=== PATIENT | female | born 1995 | race Caucasian/White ===

== ENCOUNTER 2020-06-11 18:13 | Emergency (ER) | payer OTHER, SELFPAY ==
--- NOTE | ~2020-06-11 | XR_ITS ---
EXAMINATION: XR ankle LT min 3V EXAM DATE: 06/11/2020 18:34 INDICATION: rolled ankle, pain lateral left ankle, hx fx to lt ankle TECHNIQUE: Left ankle frontal, lateral and oblique projections obtained and reviewed. There is no pr ior study for comparison. FINDINGS: The left ankle mortise appears intact. There is acute closed posttraumatic fracture at t he dorsal aspect of the navicular bone identified best on the lateral projection. This finding has be en indicated, marked on the examination for review, clinical correlation. Swelling over the lateral m alleolus. No other acute findings. IMPRESSION: Acute left dorsal navicular nondisplaced avulsion fracture. Reviewed, dictated and finalized at location A.
[2020-06-11 18:21] VITALS: BP 136/76; PULSE 78; RESP 16; TEMP 37.1; O2SAT 100
--- NOTE | 2020-06-11 18:45 | ED.LOWEXIN ---
HPI - Extremity Injury (Lower) General Chief Complaint: Extremity Injury, Lower Stated Complaint: left ankle injury Time Seen by Provider: 06/11/20 18:21 Source: patient and RN notes reviewed Mode of arrival: ambulatory Limitations: no limitations History of Present Illness HPI Narrative: 25 year old female who presents to [facility] care with complaints of pain to the lateral area of her left ankle from injury at home this morning. Patient states that she got her foot caught in a landscape brick and inverted her foot causing injury. Patient has mild swelling to the lateral aspect of her left ankle and has small area of swelling noted to orsal foot near lateral ankle. Patient denies any tingling or numbness to her left foot, has pain with weight bearing and movement of her left ankle. Patient states previous fracture to her left ankle in 2017. MD complaint: foot injury and other Onset (ago): hour(s) (this morning) Injury: Left: ankle Type of Injury: inversion Place: home Severity: moderate Severity scale (1-10): 5 Relieving factors: NSAID and cold therapy Exacerbating factors: weight bearing and movement Context: fall Associated symptoms: swelling and able to partially bear weight Other symptoms: none Treatments prior to arrival: cold therapy and NSAIDS Related Data Home Medications Medication Instructions Recorded Confirmed etonogestrel-ethinyl estradiol 1 vag ring VAGINAL MONTHLY 06/11/20 06/11/20 [EluRyng] Allergies Allergy/AdvReac Type Severity Reaction Status Date / Time venom-honey bee Allergy Severe Anaphylactic Verified 06/11/20 18:25 Shock latex Allergy Mild RASH Verified 06/11/20 18:25 Wasp Allergy Severe Anaphylactic Uncoded 11/12/18 12:28 Shock Review of Systems Review of Systems: Narrative: CONSTITUTIONAL: Denies fever, chills, or sweats. EYES: Denies visual changes, redness, or discharge. ENT: Denies rhinorrhea, congestion, sore throat, or otalgia. CARDIOVASCULAR: Denies chest pain, palpitations, or edema. RESPIRATORY: Denies cough or dyspnea. GASTROINTESTINAL: Denies abdominal pain, nausea, vomiting, or diarrhea. GENITOURINARY: Denies dysuria or hematuria. SKIN: Denies rash or itching. MUSCULOSKELETAL: Denies back pain, positive for left ankle pain and swelling lateral aspect and dorsal left foot near ankle joint, or myalgia. NEUROLOGIC: Denies headache, numbness, or weakness. PSYCHIATRIC: Past history of post depression and history of anxiety. All systems reviewed & are unremarkable except as noted in HPI and below PMFSH Past Medical History Medical History (Updated 06/13/20 @ 20:11 by Malu Hager NP) Fracture of left ankle Post depression Surgical History Surgical History (Updated 06/13/20 @ 20:03 by Malu Hager NP) History of placement of ear tubes Family History Family History (Updated 06/13/20 @ 20:04 by Malu Hager NP) Father COPD (chronic obstructive pulmonary disease) Social History Social History (Updated 06/13/20 @ 20:05 by Malu Hager NP) Tobacco type: e-cigarettes/vaping Alcohol intake: current Substance use: never Living arrangements: with family Gender identity (if verbalized by the patient): Female Comments At time of signature, agree with nursing past medical, surgical, social and family history. There is no relevant family history pertinent to the presenting complaint Exam Narrative: Exam Narrative: GENERAL: Well-appearing, well-nourished, and in no acute distress. HEAD: Normocephalic, atraumatic. EYES: PERRLA and EOMI. ENT: Nares clear, no rhinorrhea or epistaxis. Mucous membranes moist. NECK: Supple.no lymphadenopathy CHEST: Clear to auscultation. No respiratory distress. HEART: Regular rate and rhythm. No murmur heard. Normal peripheral pulses. ABDOMEN: Soft, nontender, nondistended, normal active bowel sounds. EXTREMITIES: Normal range of motion. No edema.with exception to left lateral ankle and lef
== END 2020-06-11 19:22 | disposition home or self-care (01) ==
PROVIDERS: Emergency Provider Registered Nurse
DX: S92.255A Nondisplaced fracture of navicular [scaphoid] of left foot, initial encounter for closed fracture (principal); X50.9XXA Other and unspecified overexertion or strenuous movements or postures, initial encounter; F17.200 Nicotine dependence, unspecified, uncomplicated
CPT/HCPCS: 73610; 99214; G0463

== ENCOUNTER 2022-10-07 12:44 | Outpatient (CLI) | payer OTHER, SELFPAY ==
--- NOTE | ~2022-10-07 | MR_ITS ---
MRI of the left ankle Clinical history: Chronic instability Technique: Coronal proton-density and proton-density fat-sat images, axial proton-density and proton- density fat-sat images, and sagittal proton-density and proton-density fat-sat images were acquired. Findings: Distal syndesmotic ligaments are intact. Posterior talofibular and calcaneofibular ligament s are intact. Anterior talofibular ligament is not clearly visualized, probably chronically torn. Del toid ligament is intact. Medial flexor tendons, peroneal tendons, anterior extensor tendons, and Achilles tendon are intact. No osteochondral lesion of the talar dome. Visualized bone marrow signals are unremarkable. There is focal moderate degenerative change of the talonavicular articulation dorsally. Small subtalar joint e ffusion noted. Plantar fascia is intact. Normal signal preserved within the sinus Tarsi. No soft tissue mass evident . 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 Focal moderate degenerative change of the dorsal aspect of the talonavicular articulation. Reviewed, dictated and finalized at location . 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 Focal moderate degenerative change of the dorsal aspect of the talonavicular ar ticulation.
== END 2022-10-07 12:45 ==
LOC: GOSHIMG 12:48
PROVIDERS: PCP Hospitalist; Visit Provider Podiatrist Foot & Ankle Surgery
DX: M19.072 Primary osteoarthritis, left ankle and foot (principal); M24.475 Recurrent dislocation, left foot
CPT/HCPCS: 73721

== ENCOUNTER 2022-10-21 00:47 | Day surgery (SDC) | payer OTHER, SELFPAY ==
[2022-10-18 11:03] VITALS: BMI 24.3
--- NOTE | 2022-10-18 11:07 | PC.NURSE ---
Report to the Outpatient Waiting Room, entrance under the green pavilion located off [facility], at time 0900 on date 10/21/22. Planned Procedure Time: 1100. Time changes happen often and if your time is changed the preop area will call you the afternoon before. - You and your visitor will be asked to self-screen and do not enter if you have any COVID symptoms. - Only one visitor is requested with a max of two and NO children visitors are allowed at this time. - The patient visitor may be requested to leave or wait in car when not with patient due to distancing restrictions. - A mask is optional within the hospital at this time. Patients may have clear liquids (water, carbonated beverages, clear teas, apple juice) until 3 hours prior to surgery with a maximum of 20 ounces. - No food from midnight until time of surgery Take the following medications with a SIP of water the morning of surgery: SERTRALINE DO NOT STOP ANY OF YOUR OTHER PRESCRIPTION MEDICATIONS PRIOR TO SURGERY EXCEPT THE FOLLOWING Medications to discontinue per physician: N/A Date to take last dose: N/A Please no make-up, nail czech, hairspray, perfume, deodorant, or body powder the day of surgery. No jewelry (including any body piercings) or valuables the day of surgery, leave them at home. Please take a shower or bath the night before, or the morning of, surgery with an antibacterial soap. Wear comfortable, loose fitting clothing. - Jewelry must be removed prior to entering the operating room. Rings and piercings that are not removed may be cut off. - The hospital will not accept responsibility for valuables. - Please leave all valuables, including medications, at home the day of surgery. If you are going home after surgery, a licensed tower truck driver must drive you home. - NO public transportation without another adult if you receive anesthesia. - We recommend that an adult stay with you for 24 hours following discharge. - We also recommend that you do not drive, make important decision, drink alcoholic beverages, or take any drugs that were not prescribed by your health care provider for at least 24 hours after your discharge time. Follow any additional instructions given to you from your surgeon. If you or anyone in your household have experienced Covid symptoms in the past week, please notify your surgeon or the nurse liaison at the phone number below for possible testing. Telephone instructions given to PT - SHANNAN DOLL and asked if any additional questions and then verbalized understanding. Patient advised to call surgeon office or pre surgery nurse liaison [phone] if any additional questions.
[2022-10-21] VITALS (8 sets, daily range): BP systolic 108–119; BP diastolic 69–79; PULSE 75–100; RESP 12–20; TEMP 36.8–36.9; O2SAT 96–100
--- NOTE | ~2022-10-21 | XR_ITS ---
EXAMINATION: XR surgery orthopedic DATE: 10/21/2022 13:32 INDICATION: Left ankle instability. TECHNIQUE: A single intraoperative fluoroscopic view of left ankle was obtained. I was not present. F luoroscopy exposure time was 2 seconds. COMPARISON: Left ankle radiographs 06/11/2020 FINDINGS: A tissue parts chaser overlies the lateral ankle. A wire overlies the hindfoot. IMPRESSION: 1. Lateral left ankle surgery in progress. Reviewed, dictated and finalized at location A. ACLS
--- NOTE | 2022-10-21 07:24 | WPDHPUPDATE1 ---
History and Physical Update Update Date/Time: 10/21/22 07:24 History and Physical has been reviewed, including an updated exam of the patient. There are NO changes in the patient's condition. Risks, benefits, and alternatives have been discussed and questions answered. Patient agrees to proceed with procedure.
[2022-10-21] MEDS: LACTATED RINGERS 1,000 ML 30 ML IV CONT ×2 (09:20→13:39)
--- NOTE | 2022-10-21 10:30 | SUR.PREOP ---
Discussed delay with patient and her .
--- NOTE | 2022-10-21 11:32 | WPDANESEPPF ---
Anes - Initial Pre Proc Eval Procedure: Operation Date: 10/21/22 11:00 Proposed Procedures p Angelita Lateral Left Ankle Repair - Jw Pillai JR, MD Date/Time: 10/21/22 11:32 Surgeon: Jw Pillai JR, MD Pre Op Diagnosis: Lateral Left Ankle Instability Patient Data Age: 27 Gender: F Height: 1.7 m Weight: 71.2 kg Last Vital Signs Temp 36.9 C 10/21/22 09:05 Pulse 75 10/21/22 09:05 Resp 16 10/21/22 09:05 BP 114/74 10/21/22 09:05 Pulse Ox 100 10/21/22 09:05 O2 Del Method Room Air 10/21/22 09:05 Allergies Allergy/AdvReac Type Severity Reaction Status Date / Time venom-honey bee Allergy Severe Anaphylactic Verified 10/21/22 08:52 Shock latex Allergy Mild RASH Verified 10/21/22 08:52 Wasp Allergy Severe Anaphylactic Uncoded 10/21/22 08:52 Shock Home Medications Medication Instructions Recorded Confirmed Type etonogestrel 0.12 mg-ethinyl 1 vag ring vaginal MONTHLY 06/11/20 10/18/22 History estradiol 0.015 mg/24 hr vaginal ring ([facility]) sertraline 100 mg tablet 100 mg PO DAILY 10/18/22 10/18/22 History Patient hx anesthesia problems: none Family hx anesthesia problems: none Results Review: All pre-operative results and documents have been reviewed as part of the pre-operative evaluation. [facility] Past Medical History Medical History Fracture of left ankle Post depression Surgical History Surgical History History of placement of ear tubes Family History Family History Father COPD (chronic obstructive pulmonary disease) Social History Social History Smoking status: Former smoker Tobacco type: cigarettes Additional smoking assessment comments: FORMER SOCIAL SMOKER Alcohol intake: never Substance use: never Substance use type: does not use Living arrangements: with family Gender identity (if verbalized by the patient): Female Spiritual care concerns: No Anes - Eval Final PreProcedure Day of Procedure 10/21/22 11:32 Patient weight: normal Heart: regular rate and rhythm Lungs: clear to auscultation Airway: Mallampati scale class 1 Neurological: alert and oriented Last oral intake: >/= 8 hours ASA classification: II Emergent: no Anesthetic plan: proceed Anesthesia type and monitoring: general LMA and standard monitoring Results Review: All pre-operative results and documents have been reviewed as part of the pre-operative evaluation. Informed Consent: The patient's anesthetic plan and its attendant risks and benefits were discussed with the patient/family/POA. Questions were solicited and answers provided to the satisfaction of the patient/family/POA.
[2022-10-21] MEDS: SCOPOLAMINE 1.5 MG PATCH TRANSDERM (11:38)
[2022-10-21] MEDS: ceFAZolin 2 GM/D5W 50 ML 2 GM/50 ML BAG IVPB (12:06)
[2022-10-21] MEDS: LIDOCAINE HCL 2% LOCAL INJ 20 ML VIAL 10 ML INFILTRATE (12:48)
[2022-10-21] MEDS: BUPivacaine HCL 0.5% 10 ML AMP INFILTRATE (12:48)
[2022-10-21] MEDS: fentaNYL CITRATE INJ (*CRX) 100 MCG/2 ML VIAL 25 MCG IV PUSH ×4 (13:54→14:13)
--- NOTE | 2022-10-21 14:15 | W.PM.PROC2 ---
Procedure Note - Detailed Date of Procedure 10/21/22 Pre-op Diagnosis Lateral Left Ankle Instability Post-op Diagnosis Same Procedure Performed Brostrom lateral ankle ligament stabilization left Surgeon Jw Pillai JR, DPM Anesthesia General and Local Indications Chronic history of ankle sprains and instability Description of Procedure Under mild sedation, the patient was brought in to the operating room, placed on the operating table in the lateral decubitus position. A pneumatic thigh tourniquet was placed about the patient's left thigh. Following general anesthesia, local anesthesia was obtained about the proximal leg utilizing 20 mL of local anesthesia of a one to one mix of 0.5% Marcaine plain and 2% Lidocaine plain, administered just inferior and posterior to the neck of the fibula 10ccs and also 10cm superior to the lateral malleolus with an additional 10cc's. The foot and distal leg were then scrubbed, prepped, and draped in the usual aseptic manner. An Esmarch bandage was then used to exsanguinate the patient's foot and ankle and the pneumatic thigh tourniquet was then inflated. An incision was made starting 2cm proximal to the lateral malleolus extending four centimeters in an oblique fashion over the lateral aspect of neck of the talus. The incision was continued deep down through the subcutaneous tissues using sharp and blunt dissection. All bleeders were ligated and cauterized as necessary. Next I identified the anterior aspect of the lateral malleolus and cut the lateral anterior capsule and the elongated lateral ankle ligaments, I used a rongeur to expose cancellous bone in order to promote adhesion. Next, I utilized the Arthrex Drill guide to drive a guide wire for the Arthrex internal brace system into the lateral aspect of the talus. The guide was positioned within the sinus tarsi canal with the paddle at the seven thirty position in order to appropriately orient the distal arm of the internal brace anchor. I utilized fluoroscopy to make sure that the guide wire was adequately positioned. Moreover, I tapped and screwed in the distal anchor for the Internal Brace Implant. Next, I drilled two holes and tapped in the biocomposite Suture Blake anchors. In addition in between the Suture Blake drill holes I drilled a hole for the fibular component of the Internal Brace system. Next, with the foot everted and dorsiflexed I advanced the lateral ankle ligament and retinaculum to the fibula. Finally I properly tensioned the fibular component of the Arthrex Internal brace system and drove in the bone anchor following the standard technique guidelines. I utilized the remaining two suture and provided needles from the Suture Taks to reinforce the repair by incorporating the lateral ankle capsule and ligaments and secure to the periosteum overlying the distal fibula. Excellent improvement was noted as far as the clinical anterior drawer and talar tilt. Next the subcutaneous structures were reapproximated and coapted utilizing 4-0 Vicryl. Next, the skin was reapproximated and coapted utilizing 4-0 Monocryl in running subcuticular suture fashion technique. Upon completion of the procedure, the incisions were all dressed with 1/4 inch Steri Strips, Adaptic, 4x4s, Kerlix, and Coban. The pneumatic thigh tourniquet was then deflated and a prompt hyperemic response was noted to all digits of the affected foot. A posterior splint was then applied with the foot held 90 degrees to the leg and the foot everted. The patient did very well with the procedure and the anesthesia. The patient was transferred to the recovery room with vital signs stable and vascular status intact to all toes of the affected foot. Following a period of postoperative monitoring, the patient will be discharged home on the following written and oral postoperative instructions: 1. The patient should keep the dressing clean, dry, and intact. Use a cast protector bag with eli
[2022-10-21] MEDS: oxyCODONE HCL (*CRX) 5 MG TAB IR PO (14:26)
== END 2022-10-21 15:00 | disposition home or self-care (01) ==
PROVIDERS: PCP Hospitalist; Visit Provider Podiatrist Foot & Ankle Surgery
PROC: (CPT 27698; principal; 2022-10-21 11:00)
DX: M25.372 Other instability, left ankle (principal); Z87.891 Personal history of nicotine dependence
CPT/HCPCS: 27696; 99199; A9270; C1713; J0131; J0690; J1100; J1170; J2250; J2370; J2405; J2704; J3010; J7120

== ENCOUNTER 2024-01-29 09:51 | Outpatient (CLI) | payer OTHER, SELFPAY ==
--- NOTE | ~2024-01-29 | MR_ITS ---
MRI of the left ankle Clinical history: Peroneal tendinitis Technique: Coronal proton-density and proton-density fat-sat images, axial proton-density and proton- density fat-sat images, and sagittal proton-density and proton-density fat-sat images were acquired. Findings: Syndesmotic ligaments are intact. There is evidence of postoperative change about the later al malleolus/lateral ankle. Probably chronic tear or chronic posttraumatic change of the anterior homar ofibular ligament is poorly delineated, and possibly markedly thickened/hyperintense. Posterior talof ibular ligament and calcaneofibular ligament are intact. Deltoid ligament is intact. Medial patellar tendons, peroneal tendons, anterior extensor tendons, and Achilles tendon are intact. There is no osteochondral lesion of the talar dome. There is orthopedic susceptibility artifact at th e talus, requiring correlation with surgical history. No other bone marrow signal abnormality seen. T here is mild degenerative change of the talonavicular articulation. No significant joint effusion see n. Plantar fascia intact. No soft tissue mass or fluid collection seen otherwise. Impression: Probable postoperative changes at the lateral malleolus with probable chronic tear or other chronic p osttraumatic change of the anterior talofibular ligament, as above. Peroneal tendons are intact. Reviewed, dictated and finalized at location . Impression: Probable postoperative changes at the lateral malleolus with probable chronic t ear or other chronic posttraumatic change of the anterior talofibular ligament, as above. Peroneal tendons are intact.
== END 2024-01-29 09:52 ==
PROVIDERS: PCP Hospitalist; Visit Provider Podiatrist Foot & Ankle Surgery
DX: M76.72 Peroneal tendinitis, left leg (principal)
CPT/HCPCS: 73721

== ENCOUNTER 2024-09-05 18:49 | Observation (INO) | payer OTHER, SELFPAY ==
[2024-09-05] VITALS (7 sets, daily range): BP systolic 103–113; BP diastolic 55–66; PULSE 75–81
[2024-09-05 19:21] LABS: Add Urine Microscopic? YES; Appearance Urine Cloudy (Clear); Bacteria Urine 3+ /hpf; Bilirubin Urine Negative (Negative); Blood Urine Negative (Negative); Color Urine Yellow (Yellow); Glucose Urine UA Negative (Negative); Ketones Urine Trace mg/dL (Negative); Leukocyte Esterase Ur 2+ LEU/UL (Negative); Nitrate Urine Negative (Negative); Protein Urine Trace mg/dL (Negative); Specific Grav Ur 1.027 (1.001-1.035); Squamous Epithelial Cell Urine Many /hpf (Few); WBC Urine 21-50 /hpf (0-3)
--- NOTE | 2024-09-05 19:24 | OBADM ---
This patient, Ani Fernandez, admitted to the OB room OB Post 115 for observation. Patient/family oriented to hospital policies and general routines including ID bracelet, bed and alarms, visiting hours, pain management, procedures, bathroom and other care routines, personal items, smoking policy, room service/diet, and visiting hours. Patient/Family are encouraged to report perceived risks to care and to ask questions if they do not understand what they are told or what they should do.
--- NOTE | 2024-09-11 08:35 | P.PNOB_ITS ---
OB - Triage/Final Diagnosis Visit Information Comments/Additional reasons for admission: I have assessed the risk for this patient, Ani Fernandez, and determined that she would benefit from observation care. Evaluation Laboratory results: Laboratory Tests 09/05/24 19:12 Urine Color Yellow Urine Appearance Cloudy H Urine pH 6.0 Ur Specific [place] 1.027 Urine Protein Trace Urine Glucose (UA) Negative Urine Ketones Trace H Ur Blood (Man) Negative Urine Nitrate Negative Urine Bilirubin Negative Urine Urobilinogen 1.0 Leukocyte Esterase Rfl 2+ H Urine RBC 3-5 H Urine WBC 21-50 H Ur Squamous Epith Cells Many H Urine Bacteria 3+ H Urine Casts 3-5 Final Diagnosis (1) False labor: Code(s): O47.9 - False labor, unspecified Status: Acute
== END 2024-09-05 20:30 | disposition home or self-care (01) ==
PROVIDERS: Admitting Provider Obstetrics & Gynecology; PCP Hospitalist; Visit Provider Obstetrics & Gynecology
DX: O47.02 False labor before 37 completed weeks of gestation, second trimester (principal); Z3A.27 27 weeks gestation of pregnancy
CPT/HCPCS: 59025; 81001; 87086; G0378; G0379

== ENCOUNTER 2024-10-18 10:56 | Observation (INO) | payer OTHER, SELFPAY ==
[2024-10-18 11:30] VITALS: BMI 29.9
[2024-10-18 11:39] LABS: Add Urine Microscopic? YES; Appearance Urine Clear (Clear); Bacteria Urine None Seen /hpf; Bilirubin Urine Negative (Negative); Blood Urine 2+ (Negative); Color Urine Yellow (Yellow); Glucose Urine UA Negative (Negative); Ketones Urine Negative (Negative); Leukocyte Esterase Ur Negative LEU/UL (Negative); Need Manual Microscopic Reviewed; Nitrate Urine Negative (Negative); Non Pathogenic Casts 0-2; Protein Urine Negative (Negative); RBC Urine 0-2 /hpf (0-2); Specific Grav Ur 1.003 (1.001-1.035); Squamous Epithelial Cell Urine None Seen /hpf (Few); Urobilinogen Urine 0.2 mg/dL (<2.0); WBC Urine 0-5 /hpf (0-3); pH Urine 7.5 (5.0-9.0)
--- OUTSIDE RECORDS SUMMARY | 2024-10-18 12:05 | XMS_ITS | Clinical Summary ---
Author Organization [facility] [place] 163 [facility] lto Address [address] [place] [address] Care Team Providers Care Stock Controller Name Role Phone Christian Noland MD Primary Care Provider +1 [phone] Allergies Active Allergy Reactions Criticality Noted Date Comments Latex Rash Medium 01/07/2022 Medications NUVARING 0.12-0.015 mg/24 hr vaginal ring 03/14/2017 Active amitriptyline (ELAVIL) 10 mg tablet Take 1 tablet (10 mg total) by mouth nightly 30 tablet 1 01/07/2022 Active ALPRAZolam (XANAX) 0.5 mg tabletIndicatio ns:Generalized Anxiety Disorder,Panic Disorder Take 1 tablet (0.5 mg total) by mouth nightly as needed for anxiety 30 tablet 01/07/2022 Active sertraline (ZOLOFT) 100 mg tablet Take 1 tablet (100 mg total) by mouth daily 06/04/2023 Active azithromycin (ZITHROMAX) 250 mg tabletIndicatio ns:Bronchitis Take two tabs first day, then one tab daily x 4 days 6 tablet 11/07/2023 Active benzonatate (TESSALON) 200 mg capsuleIndicati ons:Bronchitis Take 1 capsule (200 mg total) by mouth 3 (three) times a day as needed for cough 40 capsule 11/07/2023 Active Active Problems Problem Noted Date Diagnosed Date Generalized anxiety disorder 01/07/2022 Assessment & Plan (01/07/2022 4:57 PM CDT): Patient reports elevated anxiety; has difficulty with focusing in grains was running with racing heart rates Patient reports recent divorce, with continued complications a divorce Patient has history of anxiety in the past, previously on Xanax and fluoxetine; discontinued during Today start sertraline 50 mg daily, amitriptyline 10 mg nightly for sleep; Xanax 0.5 mg p.r.n. for anxiety Current moderate episode of major depressive disorder without prior episode 01/07/2022 Assessment & Plan (01/07/2022 4:57 PM CDT): Not well controlled, patient continues to have anhedonia, poor sleep, poor appetite at times Will start sertraline 50 mg daily; follow-up in 4 weeks response to therapy, encouraged patient to engage with social work and counseling Immunizations Immunization Administration Dates Next Due Influenza, Quadrivalent, Spl it, Preservative Free, Intramuscular 08/30/2018 Influenza, Unspecified 01/07/2022(Deferr ed: Patient Refused),05/21/2021(Deferred: Patient Refused) Social Plus (J&J) SARS-CoV-2 Vaccination 07/28/2021 Surgical History Surgery Date Site/Laterality Comments NO PAST SURGERIES Medical History Medical History Date Comments No pertinent past medical history Anxiety Depression Family History Medical History Relation Name Comments COPD Father Thyroid disease Mother Cancer Other Relation Name Status Comments Father Mother Other Social History Tobacco Use Types Packs/Day Years Used Date Smoking Tobacco: Former Cigarettes 0 08/2012 - 07/2013 Smokeless Tobacco: Never Alcohol Use Standard Drinks/Week Comments Yes 0 (1 standard drink = 0.6 oz pur e alcohol) AUDIT-C Answer Date Recorded Q1: How often do you have a drink containing alcohol? Never 01/07/2022 Q2: How many drinks containi ng alcohol do you have on a typical day when you are drinking? Patient does not drink Q3: How often do you have si x or more drinks on one occasion? Never 01/07/2022 PHQ-2 Answer Date Recorded PHQ-2 Total Score 5 01/07/2022 Comments No Sex and Gender Information Value Date Recorded Sex Assigned at Not on file Legal Sex Female 9:34 PM CLERK GUIDE Gender Identity Not on file Sexual Orientation Not on file Obstetrics History Last Filed Vital Signs Vital Sign Reading Time Taken Comments Blood Pressure 120/80 11/07/2023 12:24 PM CDT Pulse 110 11/07/2023 12:24 PM CDT Temperature 36.8 C (98.2 F) 11/07/2023 12:24 PM CDT Respiratory Rate 18 07/25/2023 9:42 AM CLERK GUIDE Oxygen Saturation 98% 11/07/2023 12:24 PM CDT Inhaled Oxygen Concentration - - Weight 73 kg (161 lb) 11/07/2023 12:24 PM CDT Height 170.2 cm (5' 7 ) 11/07/2023 12:24 PM CDT Body Mass Index 25.22 11/07/2023 12:24 PM CDT Plan of Treatment Health Maintenance Due Date Last Done Comments Cervical Cancer Screening 1995 Hepatitis C Screening 1995 DTaP/Tdap/Td Vaccine (1 - Tdap) 2006 Varicella Vaccines (1 of 2 - 13+ 2-dose series) 2008 Hepatitis B Screening 2013 Regular Well Visit/Exam 18-64 2013 Depression Screening 01/07/2023 01/07/2022 Covid-19 Vaccine (2 - 2023-2 5 season) 2024 07/28/2021 Influenza Vaccine (#1) 2024 08/30/2018 HPV Vaccines Aged Out No longer eligi ble based on patient's age to complete this topic Pneumococcal vaccine <65 Aged Out No longer eligible based on patient's age to complete this topic Insurance CHOICE PLUS [facility] CHOICE PLUS [place] [id number] Care Teams Stock Controller Relationship Specialty Start Date End Date Christian Noland MD [address] [place] [address] PCP - General Family Medicine 01/07/22
--- OUTSIDE RECORDS SUMMARY | 2024-10-18 12:05 | XMS_ITS | Clinical Summary ---
Author Organization [facility] Address [address] [place] [phone] Phone Care Team Providers Care Dormitory Maid Name Role Phone Provider, None Primary Care Provider Unavailabl e Allergies No known active allergies Medications NuvaRing 0.12-0.015 MG/24HR RING 09/15/2020 Active Social History Tobacco Use Types Packs/Day Years Used Date Smoking Tobacco: Never Smokeless Tobacco: Never Comments No Sex and Gender Information Value Date Recorded Sex Assigned at Not on file Legal Sex Female 3:12 PM BLASTING CONTRACT MAN Gender Identity Not on file Sexual Orientation Not on file Last Filed Vital Signs Vital Sign Reading Time Taken Comments Blood Pressure 120/64 10/21/2020 3:19 PM BLASTING CONTRACT MAN Pulse 116 10/21/2020 3:19 PM BLASTING CONTRACT MAN Temperature 37.6 C (99.7 F) 10/21/2020 3:19 PM BLASTING CONTRACT MAN Respiratory Rate 18 10/21/2020 3:19 PM BLASTING CONTRACT MAN Oxygen Saturation 96% 10/21/2020 3:19 PM BLASTING CONTRACT MAN Inhaled Oxygen Concentration - - Weight - - Height - - Body Mass Index - - Plan of Treatment Health Maintenance Due Date Last Done Comments Hepatitis C Virus (HCV) Screening 1995 TdaP Immunization 1995 Hepatitis B Immunization (1 of 3 - 19+ 3-dose series) 2014 Pap Smear 2016 Influenza Immunization (#1) 2024 08/30/2018 SARS-COV-2 Immunization (2 - season) 2024 07/28/2021 Respiratory Syncytial Virus (RSV) Immunization (Adult) (1 - 1-dose 75+ series) 2070 Meningococcal Immunization (ACWY) Aged Out No longer eligible based on patient's age to complete this topic Pneumococcal Immunization Combined Aged Out No longer eligible based on patient's age to complete this topic Rotavirus Immunization Aged Out No lo nger eligible based on patient's age to complete this topic Insurance Care Teams Dormitory Maid Relationship Specialty Start Date End Date Provider, None [place] PCP - General 10/21/20
--- OUTSIDE RECORDS SUMMARY | 2024-10-18 12:05 | XMS_ITS | Referral Summary ---
Author Organization [facility] 163 [facility] lto Address [address] [place] [address] Care Team Providers Care Wedding Planner Name Role Phone Christian Noland MD Primary Care Provider [phone] [phone] Allergies Active Allergy Reactions Criticality Noted Date [...] Unspecified 01/07/2022(Deferr ed: Patient Refused),05/21/2021(Deferred: Patient Refused) Siriona (J&J) SARS-CoV-2 Vaccination 07/28/2021 Social History Tobacco Use Types Packs/Day Years [...] on file Legal Sex Female 9:34 PM EPIC RADIANT ANALYST Gender Identity Not on file Sexual Orientation Not on file Last Filed Vital Signs Vital Sign Reading Time Taken Comments Blood Pressure 120/80 11/07/2023 12:24 PM CDT Pulse 110 11/07/2023 12:24 PM CDT Temperature 36.8 C (98.2 F) 11/07/2023 12:24 PM CDT Respiratory Rate 18 07/25/2023 9:42 AM EPIC RADIANT ANALYST Oxygen Saturation 98% 11/07/2023 12:24 PM CDT Inhaled Oxygen Concentration - - Weight 73 kg (161 lb) 11/07/2023 12:24 PM CDT Height 170.2 cm (5' 7 ) 11/07/2023 12:24 PM CDT Body Mass Index 25.22 11/07/2023 12:24 PM CDT Plan of Treatment Not on file Insurance CHOICE PLUS [facility] HMO/PPO Address: [place] [id number] [facility] CHOICE PLUS [facility] HMO/PPO Address: [place] [id number] Care Teams Wedding Planner Relationship Specialty Start Date End Date Christian [place] [address] PCP - General Family Medicine 01/07/22
[2024-10-18 12:46] VITALS: BP 115/66; PULSE 82
--- NOTE | 2024-10-31 22:19 | P.PNOB_ITS ---
OB - Triage/Final Diagnosis Visit Information Comments/Additional reasons for admission: I have assessed the risk for this patient, Ani Fernandez, and determined that she would benefit from observation care. Evaluation Laboratory results: Laboratory Tests 10/18/24 11:16 Urine Color Yellow Urine Appearance Clear Urine pH 7.5 Ur Specific [place] 1.003 Urine Protein Negative Urine Glucose (UA) Negative Urine Ketones Negative Ur Blood (Man) 2+ H Urine Nitrate Negative Urine Bilirubin Negative Urine Urobilinogen 0.2 Add Ur Microanalysis Reviewed Leukocyte Esterase Rfl Negative Urine RBC 0-2 Urine WBC 0-5 Ur Squamous Epith Cells None seen Urine Bacteria None seen Urine Casts 0-2 Final Diagnosis (1) Spotting affecting : Code(s): O26.859 - Spotting complicating , unspecified trimester Status: Acute
== END 2024-10-18 13:33 | disposition home or self-care (01) ==
PROVIDERS: Admitting Provider Obstetrics & Gynecology; PCP Hospitalist; Visit Provider Obstetrics & Gynecology
DX: O26.853 Spotting complicating pregnancy, third trimester (principal); Z3A.33 33 weeks gestation of pregnancy
CPT/HCPCS: 81001; G0378; G0379

== ENCOUNTER 2024-11-04 13:32 | Observation (INO) | payer OTHER, SELFPAY ==
[2024-11-04] VITALS (56 sets, daily range): BP systolic 112–119; BP diastolic 68–72; PULSE 80–115; O2SAT 97–100; BMI 30.4
--- NOTE | 2024-11-04 13:32 | OBADM ---
This patient, Ani Fernandez, admitted to the OB room Labor/Delivery/Recovery 105 for observation. Patient/family oriented to hospital policies and general routines including ID bracelet, bed and alarms, visiting hours, pain management, procedures, bathroom and other care routines, personal items, smoking policy, room service/diet, and visiting hours. Patient/Family are encouraged to report perceived risks to care and to ask questions if they do not understand what they are told or what they should do.
[2024-11-04] MEDS: TERBUTALINE SULFATE 1 MG/ML VIAL 0.25 MG SUB-Q ×2 (14:58→16:36)
[2024-11-04 15:09] LABS: OBXCEM ROM Plus Negative (Negative)
--- OUTSIDE RECORDS SUMMARY | 2024-11-04 16:09 | XMS_ITS | Clinical Summary ---
Author Organization [facility] Address [address] [place] [phone] Phone Care Team Providers Care Infrastructure Director Name Role Phone Provider, None Primary Care Provider Unavailabl e Allergies No known active allergies Medications NuvaRing 0.12-0.015 MG/24HR RING 09/15/2020 Active Social History Tobacco Use Types Packs/Day Years Used Date Smoking Tobacco: Never Smokeless Tobacco: Never Comments No Sex and Gender Information Value Date Recorded Sex Assigned at Not on file Legal Sex Female 3:12 PM STAFF INTERNIST OFFICE BASED ONLY Gender Identity Not on file Sexual Orientation Not on file Last Filed Vital Signs Vital Sign Reading Time Taken Comments Blood Pressure 120/64 10/21/2020 3:19 PM STAFF INTERNIST OFFICE BASED ONLY Pulse 116 10/21/2020 3:19 PM STAFF INTERNIST OFFICE BASED ONLY Temperature 37.6 C (99.7 F) 10/21/2020 3:19 PM STAFF INTERNIST OFFICE BASED ONLY Respiratory Rate 18 10/21/2020 3:19 PM STAFF INTERNIST OFFICE BASED ONLY Oxygen Saturation 96% 10/21/2020 3:19 PM STAFF INTERNIST OFFICE BASED ONLY Inhaled Oxygen Concentration - - Weight - [...] to complete this topic Insurance Care Teams Infrastructure Director Relationship Specialty Start Date End Date Provider, None [place] PCP - General 10/21/20
--- OUTSIDE RECORDS SUMMARY | 2024-11-04 16:09 | XMS_ITS | Referral Summary ---
Author Organization [facility] [place] [address] [facility] lto Address [address] [place] [address] Care Team Providers Care Belly Roller Name Role Phone Christian Noland MD Primary Care Provider [phone] [phone] Allergies Active Allergy Reactions Criticality Noted Date [...] Unspecified 01/07/2022(Deferr ed: Patient Refused),05/21/2021(Deferred: Patient Refused) Enecsys (J&J) SARS-CoV-2 Vaccination 07/28/2021 Social History Tobacco [...] on file Legal Sex Female 9:34 PM CLOCK SMITH Gender Identity Not on file Sexual Orientation Not on file Last Filed Vital Signs Vital Sign Reading Time Taken Comments Blood Pressure 120/80 11/07/2023 12:24 PM CDT Pulse 110 11/07/2023 12:24 PM CDT Temperature 36.8 C (98.2 F) 11/07/2023 12:24 PM CDT Respiratory Rate 18 07/25/2023 9:42 AM CLOCK SMITH Oxygen Saturation 98% 11/07/2023 12:24 PM CDT Inhaled Oxygen Concentration - - Weight 73 kg (161 lb) 11/07/2023 12:24 PM CDT Height 170.2 cm (5' 7 ) 11/07/2023 12:24 PM CDT Body Mass Index 25.22 11/07/2023 12:24 PM CDT Plan of Treatment Not on file Insurance CHOICE PLUS [facility] HMO/PPO Address: [place] [id number] [facility] CHOICE PLUS [facility] HMO/PPO Address: [place] [phone] Care Teams Belly Roller Relationship Specialty Start Date End Date Christian [place] [address] PCP - General Family Medicine 01/07/22
--- OUTSIDE RECORDS SUMMARY | 2024-11-04 16:09 | XMS_ITS | Clinical Summary ---
Author Organization [facility] [place] 163 [facility] lto Address [address] [place] [address] Care Team Providers Care Solid Waste Management Engineer Name Role Phone Christian Noland MD Primary Care Provider [phone] [phone] Allergies Active Allergy Reactions Criticality Noted Date [...] Unspecified 01/07/2022(Deferr ed: Patient Refused),05/21/2021(Deferred: Patient Refused) Bioceptive (J&J) SARS-CoV-2 Vaccination 07/28/2021 Surgical History Surgery [...] on file Legal Sex Female 9:34 PM MALLET CUTTER Gender Identity Not on file Sexual Orientation Not on file Obstetrics History Last Filed Vital Signs Vital Sign Reading Time Taken Comments Blood Pressure 120/80 11/07/2023 12:24 PM CDT Pulse 110 11/07/2023 12:24 PM CDT Temperature 36.8 C (98.2 F) 11/07/2023 12:24 PM CDT Respiratory Rate 18 07/25/2023 9:42 AM MALLET CUTTER Oxygen Saturation 98% 11/07/2023 12:24 PM CDT [...] to complete this topic Insurance CHOICE PLUS [facility] HMO/PPO Address: [address] [address] [place] [address] [facility] CHOICE PLUS [facility] HMO/PPO Address: [address] [address] [place] [phone] Care Teams Solid Waste Management Engineer Relationship Specialty Start Date End Date Christian Noland MD [address] [place] [address] PCP - General Family Medicine 01/07/22
[2024-11-04 16:18] LABS: Add Urine Microscopic? NO; Appearance Urine Clear (Clear); Bilirubin Urine Negative (Negative); Blood Urine Negative (Negative); Color Urine Yellow (Yellow); Glucose Urine UA Negative (Negative); Ketones Urine 2+ mg/dL (Negative); Leukocyte Esterase Ur Negative LEU/UL (Negative); Nitrate Urine Negative (Negative); Protein Urine Negative (Negative); Specific Grav Ur 1.009 (1.001-1.035); Urobilinogen Urine 0.2 mg/dL (<2.0)
[2024-11-04] MEDS: LACTATED RINGERS 1,000 ML 999 ML IV CONT (17:29)
--- NOTE | 2024-11-05 07:28 | P.PNOB_ITS ---
OB - Triage/Final Diagnosis Visit Information Reason for evaluation: threatened labor Comments/Additional reasons for admission: I have assessed the risk for this patient, Ani Fernandez, and determined that she would benefit from observation care. Evaluation Laboratory results: Laboratory Tests 11/04/24 11/04/24 14:20 16:10 Urine Color Yellow Urine Appearance Clear Urine pH 6.0 Ur Specific [place] 1.009 Urine Protein Negative Urine Glucose (UA) Negative Urine Ketones 2+ H Ur Blood (Man) Negative Urine Nitrate Negative Urine Bilirubin Negative Urine Urobilinogen 0.2 Ur Leukocyte Esterase Negative Membranes Rupture Rom plus negative Vital signs: Vital Signs - 24 hr 11/04/24 14:15 11/04/24 14:20 11/04/24 14:30 Pulse Rate 82 82 Blood Pressure 112/68 119/72 Pulse Oximetry Oxygen Delivery Room Air 11/04/24 15:01 11/04/24 15:06 11/04/24 15:11 Pulse Rate Blood Pressure Pulse Oximetry 97 100 99 Oxygen Delivery 11/04/24 15:16 11/04/24 15:21 11/04/24 15:26 Pulse Rate Blood Pressure Pulse Oximetry 98 100 100 Oxygen Delivery 11/04/24 15:31 11/04/24 15:36 11/04/24 15:41 Pulse Rate Blood Pressure Pulse Oximetry 100 100 100 Oxygen Delivery 11/04/24 15:46 11/04/24 15:51 11/04/24 15:59 Pulse Rate Blood Pressure Pulse Oximetry 100 100 100 Oxygen Delivery 11/04/24 16:04 11/04/24 16:09 11/04/24 16:14 Pulse Rate Blood Pressure Pulse Oximetry 100 100 100 Oxygen Delivery 11/04/24 16:19 11/04/24 16:24 11/04/24 16:29 Pulse Rate Blood Pressure Pulse Oximetry 100 100 100 Oxygen Delivery 11/04/24 16:34 11/04/24 16:39 11/04/24 16:44 Pulse Rate Blood Pressure Pulse Oximetry 100 100 100 Oxygen Delivery 11/04/24 16:49 11/04/24 16:54 11/04/24 16:59 Pulse Rate Blood Pressure Pulse Oximetry 100 100 100 Oxygen Delivery 11/04/24 17:04 11/04/24 17:09 11/04/24 17:14 Pulse Rate Blood Pressure Pulse Oximetry 100 100 100 Oxygen Delivery 11/04/24 17:19 11/04/24 17:24 11/04/24 17:29 Pulse Rate Blood Pressure Pulse Oximetry 100 98 100 Oxygen Delivery 11/04/24 17:34 11/04/24 17:39 11/04/24 17:44 Pulse Rate Blood Pressure Pulse Oximetry 100 100 100 Oxygen Delivery 11/04/24 17:49 11/04/24 17:54 11/04/24 17:59 Pulse Rate Blood Pressure Pulse Oximetry 100 100 100 Oxygen Delivery 11/04/24 18:04 11/04/24 18:09 11/04/24 18:14 Pulse Rate Blood Pressure Pulse Oximetry 100 100 100 Oxygen Delivery 11/04/24 18:19 11/04/24 18:24 11/04/24 18:29 Pulse Rate Blood Pressure Pulse Oximetry 100 100 100 Oxygen Delivery 11/04/24 18:34 11/04/24 18:41 11/04/24 18:46 Pulse Rate Blood Pressure Pulse Oximetry 100 100 100 Oxygen Delivery 11/04/24 18:51 11/04/24 18:56 11/04/24 19:01 Pulse Rate Blood Pressure Pulse Oximetry 100 100 100 Oxygen Delivery 11/04/24 19:06 11/04/24 19:11 11/04/24 19:16 Pulse Rate Blood Pressure Pulse Oximetry 100 100 100 Oxygen Delivery 11/04/24 19:21 11/04/24 19:26 11/04/24 19:31 Pulse Rate Blood Pressure Pulse Oximetry 100 100 100 Oxygen Delivery
== END 2024-11-04 19:46 | disposition home or self-care (01) ==
LOC: ANHLDR 11-05 07:13
PROVIDERS: Admitting Provider Obstetrics & Gynecology; PCP Hospitalist; Visit Provider Obstetrics & Gynecology
DX: O47.03 False labor before 37 completed weeks of gestation, third trimester (principal); Z3A.36 36 weeks gestation of pregnancy
CPT/HCPCS: 81003; 84112; 96372; G0378; G0379; J3105; J7120

== ENCOUNTER 2024-11-13 11:45 | Observation (INO) | payer OTHER, SELFPAY ==
--- NOTE | 2024-11-13 14:07 | OBADM ---
This patient, Ani Fernandez, admitted to the OB room Labor/Delivery/Recovery 108 for observation. Patient/family oriented to hospital policies and general routines including ID bracelet, bed and alarms, visiting hours, pain management, procedures, bathroom and other care routines, personal items, smoking policy, room service/diet, and visiting hours. Patient/Family are encouraged to report perceived risks to care and to ask questions if they do not understand what they are told or what they should do.
--- OUTSIDE RECORDS SUMMARY | 2024-11-13 15:09 | XMS_ITS | Referral Summary ---
Author Organization [facility] [place] 163 [facility] lto Address [address] [place] [address] Care Team Providers Care Manager Actuarial Name Role Phone Christian Noland MD Primary Care Provider +1 [phone] Allergies Active Allergy Reactions Criticality Noted Date [...] Unspecified 01/07/2022(Deferr ed: Patient Refused),05/21/2021(Deferred: Patient Refused) treadalong (J&J) SARS-CoV-2 Vaccination 07/28/2021 Social History Tobacco [...] on file Legal Sex Female 9:34 PM PRODUCT DELIVERY SPECIALIST Gender Identity Not on file Sexual Orientation Not on file Last Filed Vital Signs Vital Sign Reading Time Taken Comments Blood Pressure 120/80 11/07/2023 12:24 PM CDT Pulse 110 11/07/2023 12:24 PM CDT Temperature 36.8 C (98.2 F) 11/07/2023 12:24 PM CDT Respiratory Rate 18 07/25/2023 9:42 AM PRODUCT DELIVERY SPECIALIST Oxygen Saturation 98% 11/07/2023 12:24 PM CDT Inhaled Oxygen Concentration - - Weight 73 kg (161 lb) 11/07/2023 12:24 PM CDT Height 170.2 cm (5' 7 ) 11/07/2023 12:24 PM CDT Body Mass Index 25.22 11/07/2023 12:24 PM CDT Plan of Treatment Not on file Insurance CHOICE PLUS Member Subscriber Plan / Payer (Ef fective 2021-Present) Name:Ani Fernandez Relation to Subscriber:Self Name:Ani Fernandez Payer ID:[id number] (NAIC) Type:[facility]PP[facility] Address: [place] [phone] [facility] CHOICE PLUS Member Subscriber Plan / Payer (Ef fective 2022-Present) Name:Ani Fernandez Relation to Subscriber:Self Name:Ani Fernandez Payer ID:[id number] (NAIC) Type:[facility] H[facility]/PP[facility] Address: [place] [phone] Care Teams Manager Actuarial Relationship Specialty Start Date End Date Christian [place] [address] PCP - General Family Medicine 01/07/22
--- OUTSIDE RECORDS SUMMARY | 2024-11-13 15:09 | XMS_ITS | Clinical Summary ---
Author Organization [facility] [place] 163 [facility] lto Address [address] [place] [address] Care Team Providers Care Material Processor Name Role Phone Christian Noland MD Primary Care Provider [phone] [phone] Allergies Active Allergy Reactions Criticality Noted Date [...] Unspecified 01/07/2022(Deferr ed: Patient Refused),05/21/2021(Deferred: Patient Refused) ThreatTrack Security (J&J) SARS-CoV-2 Vaccination 07/28/2021 Surgical History Surgery [...] on file Legal Sex Female 9:34 PM SOLUTIONS DEVELOPER Gender Identity Not on file Sexual Orientation Not on file Obstetrics History Last Filed Vital Signs Vital Sign Reading Time Taken Comments Blood Pressure 120/80 11/07/2023 12:24 PM CDT Pulse 110 11/07/2023 12:24 PM CDT Temperature 36.8 C (98.2 F) 11/07/2023 12:24 PM CDT Respiratory Rate 18 07/25/2023 9:42 AM SOLUTIONS DEVELOPER Oxygen Saturation 98% 11/07/2023 12:24 PM CDT [...] to complete this topic Insurance [facility] HMO/PPO Address: [address] [address] [place] [address] [facility] H[facility]/PPO Address: [address] [address] [place] [phone] Care Teams Material Processor Relationship Specialty Start Date End Date Christian Noland MD [address] [place] [address] PCP - General Family Medicine 01/07/22
--- OUTSIDE RECORDS SUMMARY | 2024-11-13 15:09 | XMS_ITS | Clinical Summary ---
Author Organization [facility] Address [address] [place] [phone] Phone Care Team Providers Care Shift Superintendent Caustic Cresylate Name Role Phone Provider, None Primary Care Provider Unavailabl e Allergies No known active allergies Medications NuvaRing 0.12-0.015 MG/24HR RING 09/15/2020 Active Social History Tobacco Use Types Packs/Day Years Used Date Smoking Tobacco: Never Smokeless Tobacco: Never Comments No Sex and Gender Information Value Date Recorded Sex Assigned at Not on file Legal Sex Female 3:12 PM ASSOCIATE PROFESSOR OF MATHEMATICS Gender Identity Not on file Sexual Orientation Not on file Last Filed Vital Signs Vital Sign Reading Time Taken Comments Blood Pressure 120/64 10/21/2020 3:19 PM ASSOCIATE PROFESSOR OF MATHEMATICS Pulse 116 10/21/2020 3:19 PM ASSOCIATE PROFESSOR OF MATHEMATICS Temperature 37.6 C (99.7 F) 10/21/2020 3:19 PM ASSOCIATE PROFESSOR OF MATHEMATICS Respiratory Rate 18 10/21/2020 3:19 PM ASSOCIATE PROFESSOR OF MATHEMATICS Oxygen Saturation 96% 10/21/2020 3:19 PM ASSOCIATE PROFESSOR OF MATHEMATICS Inhaled Oxygen Concentration - - Weight - - Height - - Body Mass Index - - Plan of Treatment Health Maintenance Due Date Last Done Comments Hepatitis C Virus (HCV) Screening 1995 TdaP Immunization 1995 Hepatitis B Immunization (1 of 3 - 19+ 3-dose series) 2014 Influenza Immunization (#1) 2024 08/30/2018 SARS-COV-2 Immunization [...] patient's age to complete this topic Insurance [facility] Care Teams Shift Superintendent Caustic Cresylate Relationship Specialty Start Date End Date Provider, None [place] PCP - General 10/21/20
--- NOTE | 2024-11-14 12:19 | PM.OBTRLD ---
OB - Triage/Final Diagnosis Visit Information Comments/Additional reasons for admission: I have assessed the risk for this patient, Ani Fernandez, and determined that she would benefit from observation care. Evaluation Vital signs: Vital Signs - 24 hr 11/13/24 14:06 Oxygen Delivery Room Air Final Diagnosis (1) Spotting affecting : Code(s): O26.859 - Spotting complicating , unspecified trimester Status: Acute
== END 2024-11-13 14:15 | disposition home or self-care (01) ==
PROVIDERS: Admitting Provider Obstetrics & Gynecology; PCP Hospitalist; Visit Provider Obstetrics & Gynecology
DX: O26.853 Spotting complicating pregnancy, third trimester (principal); Z3A.37 37 weeks gestation of pregnancy
CPT/HCPCS: G0378; G0379

== ENCOUNTER 2024-11-28 10:10 | Inpatient (IN) | payer OTHER, SELFPAY ==
[2024-11-28] VITALS (22 sets, daily range): BP systolic 98–135; BP diastolic 58–92; PULSE 63–158; RESP 14; TEMP 36.8–37.5; O2SAT 100
--- OUTSIDE RECORDS SUMMARY | 2024-11-28 11:29 | XMS_ITS | Clinical Summary ---
Author Organization [facility] Address [address] [place] [phone] Phone Care Team Providers Care Animal Cruelty Investigator Name Role Phone Provider, None Primary Care Provider Unavailabl e Allergies No known active allergies Medications NuvaRing 0.12-0.015 MG/24HR RING 09/15/2020 Active Social History Tobacco Use Types Packs/Day Years Used Date Smoking Tobacco: Never Smokeless Tobacco: Never Comments No Sex and Gender Information Value Date Recorded Sex Assigned at Not on file Legal Sex Female 3:12 PM OVEN WORKER Gender Identity Not on file Sexual Orientation Not on file Last Filed Vital Signs Vital Sign Reading Time Taken Comments Blood Pressure 120/64 10/21/2020 3:19 PM OVEN WORKER Pulse 116 10/21/2020 3:19 PM OVEN WORKER Temperature 37.6 C (99.7 F) 10/21/2020 3:19 PM OVEN WORKER Respiratory Rate 18 10/21/2020 3:19 PM OVEN WORKER Oxygen Saturation 96% 10/21/2020 3:19 PM OVEN WORKER Inhaled Oxygen Concentration - - Weight - [...] patient's age to complete this topic Insurance [facility] Care Teams Animal Cruelty Investigator Relationship Specialty Start Date End Date Provider, None [place] PCP - General 10/21/20
--- OUTSIDE RECORDS SUMMARY | 2024-11-28 11:29 | XMS_ITS | Referral Summary ---
Author Organization [facility] [place] [address] [facility] lto Address [address] [place] [address] Care Team Providers Care Assembling Fabricator Name Role Phone Christian Noland MD Primary Care Provider [phone] [phone] Allergies Active Allergy Reactions Criticality Noted Date [...] Unspecified 01/07/2022(Deferr ed: Patient Refused),05/21/2021(Deferred: Patient Refused) [employer] ([facility]) SARS-CoV-2 Vaccination 07/28/2021 Social History Tobacco [...] on file Legal Sex Female 9:34 PM WEIGHT GUESSER Gender Identity Not on file Sexual Orientation Not on file Last Filed Vital Signs Vital Sign Reading Time Taken Comments Blood Pressure 120/80 11/07/2023 12:24 PM CDT Pulse 110 11/07/2023 12:24 PM CDT Temperature 36.8 C (98.2 F) 11/07/2023 12:24 PM CDT Respiratory Rate 18 07/25/2023 9:42 AM WEIGHT GUESSER Oxygen Saturation 98% 11/07/2023 12:24 PM CDT Inhaled Oxygen Concentration - - Weight 73 kg (161 lb) 11/07/2023 12:24 PM CDT Height 170.2 cm (5' 7 ) 11/07/2023 12:24 PM CDT Body Mass Index 25.22 11/07/2023 12:24 PM CDT Plan of Treatment Not on file Insurance [facility] H[facility]/PPO Address: [place] [id number] [facility] CHOICE PLUS [facility] H[facility]/PPO Address: [place] [id number] Care Teams Assembling Fabricator Relationship Specialty Start Date End Date Christian [place] [address] PCP - General Family Medicine 01/07/22
--- OUTSIDE RECORDS SUMMARY | 2024-11-28 11:29 | XMS_ITS | Clinical Summary ---
Author Organization [facility] [place] [address] [facility] lto Address [address] [place] [address] Care Team Providers Care Flight Follower Name Role Phone Christian Noland MD Primary Care Provider [phone] [phone] Allergies Active Allergy Reactions Criticality Noted Date [...] Unspecified 01/07/2022(Deferr ed: Patient Refused),05/21/2021(Deferred: Patient Refused) [employer] ([facility]) SARS-CoV-2 Vaccination 07/28/2021 Surgical History Surgery [...] on file Legal Sex Female 9:34 PM FASHION BUYING INTERNSHIP Gender Identity Not on file Sexual Orientation Not on file Obstetrics History Last Filed Vital Signs Vital Sign Reading Time Taken Comments Blood Pressure 120/80 11/07/2023 12:24 PM CDT Pulse 110 11/07/2023 12:24 PM CDT Temperature 36.8 C (98.2 F) 11/07/2023 12:24 PM CDT Respiratory Rate 18 07/25/2023 9:42 AM FASHION BUYING INTERNSHIP Oxygen Saturation 98% 11/07/2023 12:24 PM CDT [...] 2023-2 5 season) 2024 07/28/2021 Influenza Vaccine (Season Ended) 2025 08/30/19 19 HPV Vaccines Aged Out No longer eligi ble based on patient's age to complete this topic Pneumococcal vaccine <65 Aged Out No longer eligible based on patient's age to complete this topic Insurance [facility] H[facility]/PPO Address: [address] [address] [place] [address] [facility]/PPO Address: [address] [address] [place] [phone] Care Teams Flight Follower Relationship Specialty Start Date End Date Christian Noland MD [address] [place] [address] PCP - General Family Medicine 01/07/22
[2024-11-28 11:48] LABS: Basophils Percent Auto 0.3 % (0.2-1.2); Eosinophils Absolute Auto 0.1 K/mm3 (0-0.3); Eosinophils Percent Auto 1.2 % (0-4.4); Hematocrit 32.2 % (37.0-47.0); Hemoglobin 9.5 g/dL (12.0-15.0); Immature Granulocyte Absolute 0.07 K/mm3 (0.00-0.031); Immature Granulocyte Percent A 0.6 % (0-0.5); Lymphocytes Percent Auto 18.2 % (18.3-44.2); Mean Corpuscular HGB Conc 29.5 g/dl (32-36); Mean Corpuscular Hemoglobin 21.5 pg (26-34); Mean Corpuscular Volume 72.9 fl (80-100); Mean Platelet Volume 10.2 fl (7.4-10.4); Monocytes Absolute Auto 0.8 K/mm3 (0.1-0.6); Neutrophils Percent Auto 72.7 % (45.5-73.1); Platelet Count Result 270 k/mm3 (150-375); Red Blood Count 4.42 M/mm3 (4.2-5.4); Red Cell Distribution Width 17.6 % (11.5-14.5)
[2024-11-28] MEDS: OXYTOCIN 30 UNITS/NS 500 ML 30 UNITS/500 ML BAG IV CONT (11:58)
[2024-11-28] MEDS: LACTATED RINGERS 1,000 ML 125 ML IV CONT (11:59)
--- NOTE | 2024-11-28 12:12 | WPDOBADMIT ---
Obstetrics - Admit Note Admission Note: record reviewed. Additions to the history and/or subsequent changes in the physical findings follow. 29 y/o at 39 2/7 weeks here after a gush of fluid at 0630, clear. SROM confirmed on admission. Rare contractions. GBS neg. AVSS NST reactive TOCO: contractions rarely ABD soft, nontender, gravid, vertex EXT nontender Cervix 4/50/-2. AROM forebag with clear fluid. A: IUP at term with SROM. P: Augment labor as needed. Anticipate .
--- NOTE | 2024-11-28 12:18 | LDADM ---
This patient, Ani Fernandez, was admitted to Labor/Delivery/Recovery 105 on 11/28/24 at 10:10. Plans for labor, pain management and were discussed with patient. Patient/family oriented to hospital policies and general routines including ID bracelet, bed and alarms, visiting hours, pain management, procedures, bathroom and other care routines, personal items, smoking policy, room service/diet and guest tray routines, security routines, and visiting hours. Patient/Family are encouraged to report perceived risks to care and to ask questions if they do not understand what they are told or what they should do. See OBIX for further documentation.
[2024-11-28 12:25] LABS: Hypochromasia 1+; Microcytosis 1+ (NORMAL); Platelet Estimate Adequate (Adequate)
[2024-11-28 12:33] LABS: Syphilis IgG/IgM Antibody Negative (Negative)
[2024-11-28 13:00] LABS: HIV 1/2 Ab P24 Ag Result Negative (Negative)
--- NOTE | 2024-11-28 15:04 | PM.OBPRVD ---
OB - Vaginal Delivery Note Procedure Delivery date: 11/28/24 Induction method: None Delivery augmentation: Pitocin Delivery monitor: External FHT and External Uterine Route of delivery: Episiotomy description: None Laceration Description: None Specimen: Yes (cord blood) Quantitative Blood Loss (ml): 50 Anesthesia type: None Disposition: PACU Complications: None Narrative: 29 y/o at 39 3/7 weeks gestation who presented to the hospital after a gush of clear fluid. SROM was diagnosed. Labor was augmented with oxytocin IV. Her labor progressed and her cervix dilated completely. She pushed with good effort and delivered the infant's head to the perineum, followed by the body. The nose and mouth were bulb suctioned. After a delay, the cord was clamped and cut. The infant was handed off the field. Cord blood was collected. The placenta delivered spontaneously and was grossly normal in appearance. The usual 3 vessel cord was noted. There were no lacerations. Needle and instrument counts were correct. The patient was taken to recovery room in stable condition. The went to the nursery in stable condition. I was present and scrubbed for the entire delivery. Baby Date of : 11/28/24 Time of : 14:51 Gestational Age by Date: 39 Infant gender: Female presentation: vertex position: Left Occiput Anterior Placenta delivery description: Spontaneous and Normal Configuration Cord Vessel Description: 3 Vessels, Nuchal Cord and Delayed Cord Clamping
--- NOTE | 2024-11-28 15:06 | PM.OBDSVD ---
DS: Admitting Diagnosis Discharge Date 11/29/24 Admitting Diagnosis IUP at 39 3/7 weeks SROM OB - DS: Summary OB Procedures : None OB Procedures Intrapartum: Spontaneous Vag Delivery OB Procedures: : None Peripartum Data Laceration Description: None Episiotomy description: None Time Spent with Patient Time attestation: Total time spent providing and/or coordinating discharge services: DS: Data Data Completed and Pending Labs on day of discharge: Labs from last 24 hours 11/28/24 11:33 WBC 11.0 H RBC 4.42 Hgb 9.5 L Hct 32.2 L MCV 72.9 L MCH 21.5 L MCHC 29.5 L RDW 17.6 H Plt Count 270 MPV 10.2 Immature Gran % (Auto) 0.6 H Neut % (Auto) 72.7 Lymph % (Auto) 18.2 L [place] % (Auto) 7.0 Eos % (Auto) 1.2 Baso % (Auto) 0.3 Lymph # (Auto) 2.00 [place] # (Auto) 0.8 H Eos # (Auto) 0.1 Baso # (Auto) 0.0 Abs Immat Gran (auto) 0.07 H Absolute Neuts (auto) 8.0 H Absolute Nucleated RBC 0.000 Band Neutrophils % Not Reportable Nucleated RBC % 0.0 Platelet Estimate Adequate Hypochromasia 1+ Microcytosis 1+ Schistocytes Not Reportable Syphilis IgG/IgM Ab Negative HIV 1&2 Ab/P24 Ag 4thGn Negative Blood Type O Positive Antibody Screen Negative Discharge Plan Discharge Attending physician on discharge: Elia David Discharging Clinician: Elia David Patient Disposition: Home Activity: pelvic rest Diet: regular Discharge Instructions: Call or return if temperature above 100.4? F, increased abdominal pain, increased vaginal bleeding or any new problems. Patient Language: Lithuanian Stand Alone Forms: General Discharge Information Follow-up/Referrals: Elia David MD [Physician] - 6 Weeks Discharge Medications: New ibuprofen 600 mg tablet 600 mg PO Q6H PRN (Reason: cramps) Qty: 30 0RF Continued PNV cmb#95-ferrous fumarate-FA [] 28 mg iron- 800 mcg tablet 1 tablet PO DAILY ferrous sulfate 325 mg (65 mg iron) tablet,delayed release (DR/EC) 325 mg PO DAILY docusate sodium [Stool Softener] 100 mg capsule 100 mg PO DAILY Date of admission: 11/28/24 10:10 Primary Care Provider: NuzhatChristian Admitting Provider: Elia David Attending physician on admission: Elia David Condition: Stable
[2024-11-28] MEDS: OXYTOCIN 30 UNITS/NS 500 ML 30 UNITS/500 ML BAG 125 UNITS IV CONT (15:29)
--- NOTE | 2024-11-28 17:36 | OBPPTRN ---
Patient transferred to post room #280 via wheelchair. Support person present. Oriented to unit, room, information board, rooming in, admission packet and security measures. Patient verbalizes understanding.
[2024-11-28] MEDS: BENZOCAINE 20% AER SPR (*SP) 56 GM CAN 1 SPRAY TOPICAL (18:10)
[2024-11-28] MEDS: WITCH HAZEL 40 PADS 1 PAD TOPICAL (18:11)
[2024-11-28] MEDS: IBUPROFEN 600 MG TABLET PO (18:47)
[2024-11-28] MEDS: ACETAMINOPHEN 325 MG TABLET 650 MG PO (18:48)
[2024-11-29 00:30] VITALS: BP 119/74; PULSE 65; RESP 16; TEMP 36.4; O2SAT 99
[2024-11-29] MEDS: ACETAMINOPHEN 325 MG TABLET 650 MG PO (04:48)
[2024-11-29] MEDS: IBUPROFEN 600 MG TABLET PO (04:48)
[2024-11-29 04:50] VITALS: BP 102/64; PULSE 79; RESP 16; TEMP 36.4; O2SAT 99
[2024-11-29 05:17] LABS: Hematocrit 31.5 % (37.0-47.0); Hemoglobin 9.2 g/dL (12.0-15.0)
[2024-11-29 07:38] VITALS: BP 112/71; PULSE 71; RESP 16; TEMP 36.7; O2SAT 100
[2024-11-29] MEDS: DOCUSATE SODIUM 100 MG CAPSULE PO ×2 (08:37→17:17)
[2024-11-29] MEDS: MULTIVIT/MIN/PREN/FOL AC/IRON TABLET 1 TAB PO (08:37)
[2024-11-29] MEDS: POLYSACCHARIDE IRON COMPLEX 150 MG CAPSULE PO ×2 (08:37→17:17)
--- NOTE | 2024-11-29 08:55 | PM.OBPNVD ---
OB - PN: Subj Subjective Date/time seen: 11/29/24 08:55 Narrative: Pain OK. Would like to go home. OB - PN: Obj Data Labs 11/29/24 04:58 Labs: Laboratory Results - last 24 hr 11/28/24 11/29/24 11:33 04:58 WBC 11.0 H RBC 4.42 Hgb 9.5 L 9.2 L Hct 32.2 L 31.5 L MCV 72.9 L MCH 21.5 L MCHC 29.5 L RDW 17.6 H Plt Count 270 MPV 10.2 Immature Gran % (Auto) 0.6 H Neut % (Auto) 72.7 Lymph % (Auto) 18.2 L [place] % (Auto) 7.0 Eos % (Auto) 1.2 Baso % (Auto) 0.3 Lymph # (Auto) 2.00 [place] # (Auto) 0.8 H Eos # (Auto) 0.1 Baso # (Auto) 0.0 Abs Immat Gran (auto) 0.07 H Absolute Neuts (auto) 8.0 H Absolute Nucleated RBC 0.000 Band Neutrophils % Not Reportable Nucleated RBC % 0.0 Platelet Estimate Adequate Hypochromasia 1+ Microcytosis 1+ Schistocytes Not Reportable Syphilis IgG/IgM Ab Negative HIV 1&2 Ab/P24 Ag 4thGn Negative Blood Type O Positive Antibody Screen Negative OB - PN A/P Assessment and Plan (1) (normal spontaneous vaginal delivery): Code(s): O80 - Encounter for full-term uncomplicated delivery Status: Acute Plan Comments: A: PPD#1, doing well. P: Home to f/u 6 weeks. Exam Psych: Other: AVSS ABD soft, nontender, fundus firm EXT nontender
--- NOTE | 2024-11-29 12:45 | PC.NURSE ---
Introductions were made and RN consulted with patient to assess needs related to . Discussed with mother her successes, concerns and any questions she has. We reviewed working with the infant, supporting breast, protecting her nipples with an optimal deep latch, good positioning, and good hand washing. Encouraged understanding the benefits of skin to skin, responding to feeding cues, frequencies of feeding 8-12 times in 24 hours (approximately 2-3 hours), duration of feedings, milk production, intake/output feeding sheet and signs of adequate intake encouraging swallowing at the breast. Reviewed positioning and alignment, supporting breast, off-centered (asymmetrical latch) and leading with the chin with big, open, wide gape, and lips flanged. Infant latched optimally to the [right] breast in [cross cradle] position. Education given to the mother of how to visualize the suckling (with good rocking jaw motion) swallows (dropping of the lower jaw) and how to listen for drinking at the breast (the ka sound). The infant was [able] to maintain latch without discomfort to mother. Nipple care reviewed with optimal latch, good positioning and using clean hands when touching her breast. Resources used to facilitate learning were used from the [visual handouts/ tool/mom and baby guide]. Mother voiced understanding of the education shared, to call for assistance if the infant does not latch or if there is discomfort with . Reported to the Primary RN.
[2024-11-29] MEDS: SERTRALINE HCL 50 MG TABLET PO (12:52)
[2024-11-29 13:00] VITALS: BP 98/59; PULSE 71; RESP 16; TEMP 37.1; O2SAT 98
[2024-11-30] VITALS: BP 108/68; PULSE 78; RESP 18; TEMP 36.7; O2SAT 99
[2024-11-30] MEDS: IBUPROFEN 600 MG TABLET PO (00:05)
[2024-11-30] MEDS: ACETAMINOPHEN 325 MG TABLET 650 MG PO (00:05)
[2024-11-30] MEDS: WITCH HAZEL 40 PADS 1 PAD TOPICAL (00:30)
[2024-11-30 07:50] VITALS: BP 102/54; PULSE 61; RESP 18; TEMP 36.6; O2SAT 98
[2024-11-30] MEDS: DOCUSATE SODIUM 100 MG CAPSULE PO (10:16)
[2024-11-30] MEDS: POLYSACCHARIDE IRON COMPLEX 150 MG CAPSULE PO (10:16)
[2024-11-30] MEDS: SERTRALINE HCL 50 MG TABLET PO (10:16)
[2024-11-30] MEDS: MULTIVIT/MIN/PREN/FOL AC/IRON TABLET 1 TAB PO (10:16)
--- NOTE | 2024-11-30 12:30 | PC.NURSE ---
Mother verbalizes she is able to independently latch with appropriate positioning and alignment. She denies any nipple discomfort and is responsively . Infant is currently meeting outcomes for weight, output, jaundice, blood sugar and feeding frequencies of 8-12 times in 24 hours. Mother declines any additional assistance or education at this time. Mother is encouraged to call for assistance if her infant doesn?t latch, pain with latching, questions or concerns. Mother voiced understanding of information shared along with the mom/baby guide for an additional resource. Reported to the Primary RN.
[2024-12-02 10:07] VITALS: BP 121/88; PULSE 66; RESP 18; TEMP 36.9; O2SAT 100
== END 2024-11-30 13:30 | disposition home or self-care (01) | DRG 807 ==
LOC: ANHLDR 15:07 → ANHOB2 17:39
PROVIDERS: Admitting Provider Obstetrics & Gynecology; PCP Hospitalist; Visit Provider Obstetrics & Gynecology
DX: O69.81X0 Labor and delivery complicated by cord around neck, without compression, not applicable or unspecified (principal); Z37.0 Single live birth; Z3A.39 39 weeks gestation of pregnancy
CPT/HCPCS: 36415; 85014; 85018; 85025; 86593; 86703; 86850; 86900; 86901; A9270; G0432; J2590; J7120

== ENCOUNTER 2024-12-27 09:08 | Outpatient (RCR) | payer OTHER, SELFPAY ==
--- OUTSIDE RECORDS SUMMARY | 2024-12-27 09:13 | XMS_ITS | Clinical Summary ---
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 Gender Identity Not on file Sexual Orientation Not on file Last Filed Vital Signs Vital Sign Reading Time Taken Comments Blood Pressure 120/64 10/21/2020 3:19 PM INDIGO VAT TENDER CLOTH Pulse 116 10/21/2020 3:19 PM INDIGO VAT TENDER CLOTH Temperature 37.6 C (99.7 F) 10/21/2020 3:19 PM INDIGO VAT TENDER CLOTH Respiratory Rate 18 10/21/2020 3:19 PM INDIGO VAT TENDER CLOTH Oxygen Saturation 96% 10/21/2020 3:19 PM INDIGO VAT TENDER CLOTH Inhaled Oxygen Concentration - - Weight - [...] patient's age to complete this topic Insurance [facility] Care Teams Vice President Of Business Development Relationship Specialty Start Date End Date Provider, None [place] PCP - General 10/21/20
--- OUTSIDE RECORDS SUMMARY | 2024-12-27 09:13 | XMS_ITS | Clinical Summary ---
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 CHOICE PLUS [place] [id number] Care Teams Human Resources Compliance Manager Relationship Specialty Start Date End Date Christian Noland MD [address] [place] [address] PCP - General Family Medicine 01/07/22
--- OUTSIDE RECORDS SUMMARY | 2024-12-27 09:13 | XMS_ITS | Referral Summary ---
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 Gender Identity Not on file Sexual Orientation Not on file Last Filed Vital Signs Vital Sign Reading Time Taken Comments Blood Pressure 120/80 11/07/2023 12:24 PM CDT Pulse 110 11/07/2023 12:24 PM CDT Temperature 36.8 C (98.2 F) 11/07/2023 12:24 PM CDT Respiratory Rate 18 07/25/2023 9:42 AM PAPER COATING SUPERVISOR Oxygen Saturation 98% 11/07/2023 12:24 PM CDT [...] to Subscriber:Self Name:Ani Fernandez Payer ID:[id number] (NAIC) Type:[facility] HMO/PPO Address: [place] [id number] [facility] CHOICE PLUS Member Subscriber Plan / Payer (Ef fective 2022-Present) Name:Ani Fernandez Relation to Subscriber:Self Name:Ani Fernandez Payer ID:[id number] (NAIC) Type:[facility] HMO/PPO Address: [place] [id number] Care Teams Venture Capital Analyst Relationship Specialty Start Date End Date Christian [place] [address] PCP - General Family Medicine 01/07/22
--- NOTE | 2024-12-27 09:15 | PC.NURSE ---
In- 0915 Out- 1000 Reason for visit: new onset latching difficulty/breast refusal History: Ani had a normal vaginal delivery without complications. This is her third baby and she breastfed both of her other children for 2 years. History: Nisa was born at 39/3 weeks gestation. She breastfed well for the first 3 weeks of life, gaining weight appropriately. In the last week, baby has begun to refuse the breast. The only significant history mom can think of is that baby had an evaluation for possible mastitis. [facility] did a thorough consultation and found the cause of baby's breast swelling to be hormonal and not an infection. Baby has not had any other health concerns since . She breastfed well at her first feeding of the day this morning, but typically all feedings are attempts and then bottle feeding pumped breast milk. Observations: Ani is able to latch baby easily. Baby will suck a few times and then release the nipple and cry. She is off and on the breast many times before mom switches and tries the other breast. Baby does the same thing, regardless of which breast or position she is in. We tried using a nipple shield to see if the firmer silicone would assist baby to maintain the latch. Baby is able to suck on the shield initially, maintaining the latch for a few minutes. Then she let go and proceeded to treat the shield the same way she does the natural nipple, off and on constantly. Mom says this is how every feeding goes most days. She did not bring a bottle for baby today and will feed her pumped milk when they get home. Infant's mouth was assessed with no apparent tightness or restricted movement. She moves her tongue past the lower gums. She is able to maintain suction on the pacifier, breast, and nipple shield. Mom states that when bottle feeding there is some smacking occasionally. Noisiness would be a concern for baby not being able to maintain a seal with latching. However, when baby does remain latched for more than a few sucks, it is apparent that she has no trouble maintaining a seal or suction on the breast. When baby releases the breast, it seems to be infant controlled rather than a functional issue preventing her from maintaining the latch. Mom is already pumping every feeding when baby does not breastfeed. She has also tried pumping before latching to elicit a letdown so baby has instant milk flow. Suggested she could also try giving a few mL of pumped milk with the bottle prior to latching. Mom has tried many different feeding positions including laid back. She also does skin to skin and allows baby to remain at breast anytime she will actually stay latched and suckle, even for nonnutritive sucking. Encouraged mom this is an appropriate way to soothe baby. Plan of Care: Continue offering the breast at each feeding. Use the nipple shield if it helps baby to stay latched to the breast. May need to try different sizes/shapes of shield if this one is not comfortable. Keep up with pumping when baby is not stimulating the breast. Continue bottle feeding pumped milk when baby does not breastfeed. If baby does not begin latching better at some feeds or if anything gets worse in the next few days, mom should call Dr. Matos for another assessment. It is normal for babies to desire to suckle and eat and any refusal at breast could be a cause for concern of an underlying issue. Baby appears vigorous and well. Since there is no difference in baby's distress when she is moved to different positions, it's unclear if there could be some underlying pain that would cause baby to be so inconsolable at breast. Mom is also offered the option of contacting a pediatric dentist or ENT for a very thorough oral assessment to rule out any functional issue not noted previously. Follow up plans: Follow up with Dr. Matos as needed. Call back to the office if there is any other question or concerns. Ani can always return for another visit if needed.
== END 2025-03-27 23:59 | disposition home or self-care (01) ==
LOC: ANHOBOP 09:08
PROVIDERS: PCP Hospitalist; Visit Provider Pediatrics
DX: Z39.1 Encounter for care and examination of lactating mother (principal)
CPT/HCPCS: 99202; G0463